=== PATIENT | female | born 1975 | race Caucasian/White ===

== ENCOUNTER → 2018-05-17 12:33 | Outpatient (CLI) | payer MEDICARE, SELFPAY ==
[2018-05-17 13:03] LABS: Absolute Lymphocyte Count 2.07 X10^3/ul (0.83-4.51); Absolute Neutrophil Count 4.7 X10^3/uL (2.0-7.7); Basophil# 0.09 X10^3/uL; Basophil% 1.2 % (0-1); Eosinophil# 0.23 X10^3/uL; Eosinophils% 3.1 % (0-5); Hematocrit 43.5 % (37-47); Lymphocyte # 2.07 X10^3/ul (4.0); Lymphocyte % 27.9 % (19-41); Mean Corp Hgb Conc 32.2 g/gl (32-36); Mean Corpuscular Hgb 28.7 pg (27.0-32.0); Mean Corpuscular Volume 89.3 fL (81-99); Mean Platelet Vol. 11.1 fl (6.2-12.0); Monocyte# 0.33 X10^3/uL; Monocyte% 4.4 % (0-10); Neutrophil % 63.3 % (47-70); Platelet Count 263 K/mm3 (150-450); RBC Distribution Width SD 45.6 fl (35.1-43.9); Red Blood Count 4.87 M/mm3 (4.2-5.4); White Blood Count 7.4 K/mm3 (4.4-11.0)
[2018-05-17 13:04] LABS: POSITIVE COUNT NO; POSITIVE DIFFERENTIAL NO; POSITIVE MORPHOLOGY NO
[2018-05-17 13:07] LABS: ALB/GLOB Ratio 0.9 RATIO (0.9-2.4); AST(SGOT) 17 U/L (15-37); Alanine Aminotransfer ALT/SGPT 17 U/L (13-56); Albumin, Serum 3.6 g/dL (3.2-5.0); Alkaline Phosphatase 84 U/L (45-117); Anion Gap 3 (5-15); BUN 9 mg/dL (7-18); Calcium,Total 10.1 mg/dL (8.5-10.1); Chloride 106 mmol/L (98-107); Creatinine, Serum 0.75 mg/dL (0.55-1.02); EST Glomerular Filtration Rate 89 mL/min (>60); Est Glom Filt Rate - Afr Amer 107 mL/min (>60); Globulin 3.8 g/dL (2.2-4.2); Glucose 89 mg/dL (74-106); Potassium 4.3 mmol/L (3.5-5.1); Protein, Total 7.4 g/dL (6.4-8.2); Sodium Level 138 mmol/L (136-145)
== END ==
PROVIDERS: Visit Provider Nurse Practitioner Family
DX: R10.31 Right lower quadrant pain (principal); R10.9 Unspecified abdominal pain; R11.0 Nausea
CPT/HCPCS: 80053; 85025

== ENCOUNTER 2018-05-20 14:19 | Emergency (ER) | payer BC, MEDICARE, SELFPAY ==
[2018-05-20 14:20] VITALS: BP 139/87; PULSE 90; RESP 16; TEMP 36.6; O2SAT 99; BMI 36.9
--- NOTE | 2018-05-20 14:36 | CT_ITS ---
STUDY: CT ABDOMEN AND PELVIS WITH CONTRAST REASON FOR EXAM: Female, 43 years old. Persistent right lower quadrant pain, nausea and vomiting. RADIATION DOSAGE (If Supplied By Facility): CTDIvol = ( 18.73 ) mGy, DLP = ( 1434.87 ) mGycm TECHNIQUE: Transaxial images were obtained from the dome of the diaphragm to the symphysis pubis without oral contrast. 100 ml of Isovue 300 contrast was administered. Sagittal and coronal images were reconstructed. Individualized dose optimization techniques were used for this CT. COMPARISON: Report of previous study of 09/01/2010 FINDINGS: There is right lower lobe atelectasis. The visualized portions of the heart are within normal limits. Normal liver. Normal gallbladder and extrahepatic biliary system. Normal spleen. Normal pancreas. Normal bilateral adrenal glands. Normal right kidney. Normal left kidney. Normal visualized stomach. Normal small intestine. Normal colon. The appendix is visualized and appears normal. Normal abdominal aorta. Normal inferior vena cava. Normal retroperitoneum. Normal urinary bladder. Status post hysterectomy changes are noted. There is a complex cystic focus of the left adnexa measuring 2.3 x 2.4 x 2.5 cm. This may represent the same abnormality reported on the prior CT study of 2009. There is a small umbilical hernia containing fat. There is narrowing of the L4-[address]/Abdomen/Pelvis WITH Contrast IMPRESSION: 1. Right lower lobe atelectasis. 2. Status post hysterectomy. 3. Complex cystic focus of the left adnexa measuring 2.3 x 2.4 x 2.5 cm. This may represent the same abnormality reported on the prior CT study of 2009. Comparison with previous study is recommended if such is available. 4. Small fat-containing umbilical hernia. 5. There is no evidence of free intra-abdominal or intrapelvic air, fluid, or inflammatory process. Electronically Signed: Stanislav Denney MD at 17:59 EDT , Service support ,
[2018-05-20 15:01] LABS: Mucous, Urine 0 SEEN /hpf (<or=2+); Red Blood Cells-Urine 0 SEEN /hpf (0-5); White Blood Cells 0 SEEN /hpf (0-5)
[2018-05-20] MEDS: Ondansetron 4 MG/2 ML Vial IV (15:01)
[2018-05-20] MEDS: HYDROmorphone 1 MG/ML Syringe IV (15:01)
[2018-05-20] MEDS: 0.9% Normal Saline 1,000 ML 1000 ML IV (15:01)
[2018-05-20 15:03] LABS: Color, Urine Yellow (Yellow); Glucose, Dipstick Normal (Normal); Ketone-Dipstick Negative (Negative); Leukocyte Esterase-Dipstick Negative /ul (Negative); Nitrite-Dipstick Negative (Negative); Occult Blood-Urine Negative /ul (Negative); Protein-Dipstick 15 mg/dl (Negative); Specific Gravity, Urine 1.015 (1.002-1.030); Urine Bilirubin Dipstick Negative (Negative); Urine Clarity Clear (Clear); Urine Urobilinogen Normal (Normal); Urine pH 6.5 (5.0 - 8.0)
[2018-05-20 15:13] LABS: Amorphous Sediment 1+; Squamous Epithelial Cells - UA 5-10 SEEN /hpf (5-10)
[2018-05-20 15:14] LABS: Bacteria RARE /hpf (None Seen)
[2018-05-20 15:28] LABS: Absolute Lymphocyte Count 2.18 X10^3/ul (0.83-4.51); Absolute Neutrophil Count 4.5 X10^3/uL (2.0-7.7); Basophil# 0.06 X10^3/uL; Basophil% 0.8 % (0-1); Eosinophil# 0.21 X10^3/uL; Eosinophils% 2.9 % (0-5); Hematocrit 43.7 % (37-47); Hemoglobin 14.2 g/dl (12.0-15.0); Lymphocyte # 2.18 X10^3/ul (4.0); Lymphocyte % 29.6 % (19-41); Mean Corp Hgb Conc 32.5 g/gl (32-36); Mean Corpuscular Hgb 29.2 pg (27.0-32.0); Mean Corpuscular Volume 89.7 fL (81-99); Mean Platelet Vol. 10.8 fl (6.2-12.0); Monocyte# 0.39 X10^3/uL; Monocyte% 5.3 % (0-10); Neutrophil # 4.52 X10^3/uL (2.7-7.7); Neutrophil % 61.4 % (47-70); POSITIVE COUNT NO; POSITIVE DIFFERENTIAL NO; POSITIVE MORPHOLOGY NO; Platelet Count 258 K/mm3 (150-450); RBC Distribution Width CV 13.9 % (11.6-14.6); RBC Distribution Width SD 45.3 fl (35.1-43.9); Red Blood Count 4.87 M/mm3 (4.2-5.4); White Blood Count 7.4 K/mm3 (4.4-11.0)
--- NOTE | 2018-05-20 15:39 | ED.DCSUM_ITS ---
- ER Visit Summary Date of Service: 05/20/18 Chief Complaint: Abdominal pain] History of Present Illness: The patient is a 43 F [presents the emergency department complaint of abdominal pain for a week although she states she has not been feeling well for over a month probably. Patient states that she really has no appetite and is been unable to eat unless she pur?es her food. Oftentimes patient feels like her food is getting stuck and that she vomits. Food seems to make the pain in her abdomen worse. She has had fever intermittently up to 1015. Patient was seen [address] astorga had an outpatient CT with p.o. contrast which showed a liver mass and was recommended that patient have a repeat CT scan with IV contrast. Patient states that she is lost about 30 pounds in the last month and a half. Patient states that there is a family history of liver cancer. Patient also with remote history of uterine and cervical cancer for which she had a hysterectomy. She denies any other abdominal surgeries.] Physical Examination: [HEENT-PERRLA, EOMI. Cranial nerves II through XII grossly intact. TMs clear. Mucous membranes moist. No adenopathy. Cardiovascular-regular rate and rhythm without murmur or ectopy Lungs-clear to auscultation, chest wall stable without crepitus or subcu emphysema Abdomen-normoactive bowel sounds, soft. Patient has tenderness diffusely to the right upper quadrant and right lower quadrant. There is no rebound, rigidity, or perineal signs. No masses palpated although exam difficult secondary to patient large body habitus. Extremities-intact ?4, normal range of motion, normal pulses, atraumatic] Test Results: [CBC with differential obtained showed a normal white blood cell count of 7.4, hemoglobin 14.2, hematocrit 44, platelets 258. Chemistries and LFTs are pending. Urinalysis was unremarkable. CT scan abdomen pelvis with IV and p.o. contrast was ordered and is pending.] Emergency Department Course and Treatment: [Care of patient turned over to evening physician awaiting CT results and final lab results.] Treatment Plan: [Pending] Disposition: [Pending] Impression: [Abdominal pain] This note was generated with [employer] dictation software. It may contain incorrect words, spelling, and punctuation that were not noted in review of the chart prior to signing ED Disposition - Plan for ED Patient: Chief Complaint: Abd Pain Referrals: Darinel Talamantes MD [Primary Care Provider] -
[2018-05-20 15:42] LABS: AST(SGOT) 12 U/L (15-37); Alanine Aminotransfer ALT/SGPT 19 U/L (13-56); Albumin, Serum 3.7 g/dL (3.2-5.0); Alkaline Phosphatase 79 U/L (45-117); Anion Gap 4 (5-15); BUN 9 mg/dL (7-18); BUN/Creat Ratio 11.2 RATIO (10-20); Calcium,Total 8.8 mg/dL (8.5-10.1); Chloride 107 mmol/L (98-107); EST Glomerular Filtration Rate 83 mL/min (>60); Est Glom Filt Rate - Afr Amer 100 mL/min (>60); Estimated Creatinine Clearance 77.49 ml/min; Globulin 3.7 g/dL (2.2-4.2); Glucose 100 mg/dL (74-106); Lipase 109 U/L (73-393); Potassium 3.8 mmol/L (3.5-5.1); Protein, Total 7.4 g/dL (6.4-8.2); Sodium Level 141 mmol/L (136-145)
[2018-05-20 15:44] LABS: Lactic Acid 1.3 mmol/L (0.4-2.0)
[2018-05-20 17:43] VITALS: BMI 37.0
--- NOTE | 2018-05-20 18:50 | ED.DCSUM_ITS ---
- ER Visit Summary Date of Service: 05/20/18 Chief Complaint: [] History of Present Illness: The patient is a 43 F [] Physical Examination: [] Test Results: [] Emergency Department Course and Treatment: This patient was endorsed to me from Dr. Adams. Screening labs were obtained were unremarkable. CT does not show any acute abdominal process. The patient's pain is controlled. I did discuss the patient with Dr. Alves as I do feel that she will likely need outpatient endoscopy. She will be started on Pepcid and Carafate. The patient will be seen in the office for the end of the week for reevaluation. She was counseled on concerning symptoms and reasons to return. The patient will be discharged home. Treatment Plan: [] Disposition: Discharge Impression: 1. Upper abdominal pain This note was generated with [employer] dictation software. It may contain incorrect words, spelling, and punctuation that were not noted in review of the chart prior to signing ED Disposition - Plan for ED Patient: Disposition: Home or Assisted Living Chief Complaint: Abd Pain Instructions: ED PUD Vs Gastritis Prescriptions: Famotidine [Pepcid] 20 mg PO BID #28 tab Sucralfate [Carafate] 1 gm PO 4X/DAY #60 tab Referrals: Magalie Alves MD [STAFF PHYSICIAN] -
== END 2018-05-20 19:05 | disposition home or self-care (01) ==
LOC: ED 15:19
PROVIDERS: Emergency Provider Emergency Medicine; PCP Family Medicine
DX: R10.11 Right upper quadrant pain (principal); R10.31 Right lower quadrant pain; R11.2 Nausea with vomiting, unspecified; R35.0 Frequency of micturition; R50.9 Fever, unspecified; Z85.41 Personal history of malignant neoplasm of cervix uteri; Z85.42 Personal history of malignant neoplasm of other parts of uterus; Z90.710 Acquired absence of both cervix and uterus
CPT/HCPCS: 74177; 80053; 81001; 83605; 83690; 85025; 96361; 96374; 96375; 99283; J7030; Q9967; A4216; J2405